=== PATIENT | female | born 1970 | race Caucasian/White ===

== ENCOUNTER 2016-11-26 11:13 | Outpatient (CLI) | payer OTHER | END 2016-11-26 11:14 | disposition home or self-care (01) | DX: G47.30 Sleep apnea, unspecified (principal); G47.8 Other sleep disorders; R06.83 Snoring; R51 Headache; G47.10 Hypersomnia, unspecified ==

== ENCOUNTER 2016-12-11 18:13 | Outpatient (CLI) | payer OTHER | END 2016-12-11 18:14 | disposition critical access hospital (66) | DX: R51 Headache (principal); R11.2 Nausea with vomiting, unspecified; R07.89 Other chest pain | CPT/HCPCS: A0425; A0427 ==

== ENCOUNTER 2016-12-11 18:28 | Emergency (ER) | payer OTHER ==
[2016-12-11] MEDS ORDERED: SODIUM CHLORIDE 0.9% 1,000 ML IV ONE (18:48)
[2016-12-11] MEDS ORDERED: ONDANSETRON 4 MG/2 ML VIAL IVP STA (18:48)
[2016-12-11] MEDS ORDERED: SUMAtriptan 6 MG/0.5 ML VIAL SUBQ STA (18:48)
[2016-12-11] MEDS ORDERED: SUMAtriptan 6 MG/0.5 ML VIAL SUBQ ONE (18:52)
--- NOTE | 2016-12-11 18:52 | ED Physician Documentation ---
PD HPI HEADACHE - Stated complaint Stated Complaint: MIGRAINE - Chief complaint Chief Complaint: Neuro - History obtained from History obtained from: Patient, Family, EMS - History of Present Illness Timing - onset: Other (46-year-old woman with chronic migraines, developed a gradual onset typical headache last night and started vomiting this afternoon. She tried to take Imitrex but was unable to keep it down. After vomiting she does develop some substernal chest pain which she's had before when she vomits.) Review of Systems Ten Systems: 10 systems reviewed and negative Constitutional: denies: Fever, Chills Respiratory: denies: Dyspnea, Cough GI: reports: Nausea, Vomiting. denies: Abdominal Pain, Diarrhea PD PAST MEDICAL HISTORY - Past Medical History Cardiovascular: None Respiratory: Asthma Neuro: Headache/migraine Endocrine/Autoimmune: HyPOthyroidism GI: None - Past Surgical History Past Surgical History: No HEENT: Tonsil/Adenoidectomy - Present Medications Home Medications: Ambulatory Orders Medication Instructions Recorded Confirmed Budesonide/Formoterol Fumarate 1 puffs IH DAILY 11/17/13 12/11/16 [Symbicort 160-4.5 Mcg Inhaler] Ibuprofen [Motrin] 800 mg PO Q8H PRN 11/17/13 12/11/16 Levothyroxine [Synthroid] 125 mcg PO QDAC 11/17/13 12/11/16 Albuterol Sulfate [Ventolin Hfa] 18 gm IH BID 05/23/14 12/11/16 Sumatriptan Succinate [Imitrex] 25 mg PO DAILY PRN #15 tablet 04/12/15 12/11/16 Ferrous Sulfate 324 mg PO DAILY 12/11/16 12/11/16 - Allergies Allergies/Adverse Reactions: Allergies Allergy/AdvReac Type Severity Reaction Status Date / Time acetaminophen [From Vicodin] Allergy Unknown Verified 05/23/14 11:15 hydrocodone bitartrate * Allergy Unknown Verified 05/23/14 11:15 [From Vicodin] hydromorphone HCl * Allergy Unknown Verified 05/23/14 11:15 [From Dilaudid] latex Allergy Rash Verified 11/17/13 16:04 oxycodone HCl * Allergy vomiting Verified 11/17/13 16:04 [From Percocet] promethazine HCl * Allergy vomiting Verified 11/17/13 16:04 [From Phenergan] nalbuphine HCl * AdvReac Severe Anxiety Verified 11/17/13 17:46 [From Nubain] - Social History Does the pt smoke?: No Smoking Status: Never smoker Does the pt drink ETOH?: No Does the pt have substance abuse?: No - Immunizations Immunizations are current?: Yes - POLST Patient has POLST: No PD ED PE NORMAL - Vitals Vital signs reviewed: Yes - General General: Alert and oriented X 3, Other (retching) - HEENT HEENT: PERRL, EOMI - Neck Neck: Supple, no meningeal sign, No bony TTP - Cardiac Cardiac: RRR, No murmur - Respiratory Respiratory: No respiratory distress, Clear bilaterally - Neuro Neuro: Alert and oriented X 3, clinical team lead 2-12 intact, No motor deficit, No sensory deficit, Normal speech - Psych Psych: Normal mood, Normal affect Results - Vitals Vitals: Vital Signs - 24 hr 12/11/16 12/11/16 12/11/16 18:29 19:19 19:25 Temperature 35.9 C L Heart Rate 78 75 82 Respiratory 16 20 Rate Blood Pressure 159/104 H 153/102 H O2 Saturation 96 92 97 Oxygen O2 Source Room air - EKG (time done) 1839 Rate: Rate (enter#) (67) Rhythm: NSR [place]: Normal QRS: Low voltage Ischemia: Normal ST segments Computer interpretation: Agree with computer 1933 Rate: Rate (enter#) (64) Rhythm: NSR [place]: Normal Intervals: Normal [place] QRS: Low voltage Ischemia: Normal ST segments Compare to prior EKG: Unchanged from prior EKG Computer interpretation: Agree with computer PD MEDICAL DECISION MAKING - ED course ED course: The headache is gradual in onset and similar to prior headaches. As such I doubt subarachnoid hemorrhage. There are no infectious symptoms such as fever or stiff neck to make me suspect meningitis. No carbon monoxide exposure. She was having some chest pressure with this, but it seemed related to vomiting. Her EKG was normal. She had more chest pressure the administration of Imitrex which is a known side effect. EKG repeated and still normal and unchanged. She was initially given Imitrex and Zofran for her headache. The nurse told me that the patient had said that Zofran doesn't work for her, but the patient clarified and said it was Phenergan that didn't work for her. She didn't have any improvement with these therapies she was administered Reglan and Benadryl IV. She initially refused the Reglan because of similar he is to Phenergan, but she had good resolution after the Benadryl and requested discharge. Departure - Departure Disposition: 01 Home, Self Care Clinical Impression: Migraine Qualifiers: Migraine type: without aura Status migrainosus presence: with status migrainosus Intractability: intractable Qualified Code(s): G43.011 - Migraine without aura, intractable, with status migrainosus Condition: Good Record reviewed to determine appropriate education?: Yes Instructions: ED Headache Migraine Comments: Call your doctor to arrange a follow up appointment. Make the next available appointment. In the interim return anytime if worse or if new symptoms develop. Your blood pressure was elevated today on check in to the emergency department. This does not mean that you have hypertension, it is a common phenomenon to check into the emergency department and have elevated blood pressure. I recommend that you see your primary care physician within the week to have it rechecked when you're feeling better.
[2016-12-11] MEDS ORDERED: ONDANSETRON 4 MG/2 ML VIAL ONE (18:53)
[2016-12-11] MEDS ORDERED: diphenhydrAMINE INJ 50 MG/ML VIAL IVP STA (19:28)
[2016-12-11] MEDS ORDERED: METOCLOPRAMIDE 10 MG/2 ML VIAL IVP STA (19:28)
[2016-12-11] MEDS ORDERED: diphenhydrAMINE INJ 50 MG/ML VIAL ONE (19:34)
[2016-12-11] MEDS ORDERED: METOCLOPRAMIDE 10 MG/2 ML VIAL IVP ONE (19:35)
[2016-12-11 20:35] VITALS: BP 175/105
== END 2016-12-11 21:00 | disposition home or self-care (01) ==
LOC: EDUNIT# → ED 18:28
DX: G43.011 Migraine without aura, intractable, with status migrainosus (principal); R03.0 Elevated blood-pressure reading, without diagnosis of hypertension; J45.909 Unspecified asthma, uncomplicated; E03.9 Hypothyroidism, unspecified
CPT/HCPCS: 93005; 93010; 96372; 96374; 96375; 99284

== ENCOUNTER 2016-12-20 21:44 | Outpatient (CLI) | payer OTHER | END 2016-12-20 21:45 | disposition home or self-care (01) | LOC: SC 21:44 | PROVIDERS: ATTEND Internal Medicine Pulmonary Disease | DX: G47.33 Obstructive sleep apnea (adult) (pediatric) (principal); Z68.43 Body mass index [BMI] 50.0-59.9, adult | CPT/HCPCS: 95810 ==

== ENCOUNTER 2017-01-14 13:04 | Outpatient (CLI) | payer OTHER | END 2017-01-14 13:05 | disposition home or self-care (01) | LOC: SC 13:04 | PROVIDERS: ATTEND Internal Medicine Pulmonary Disease | DX: G47.33 Obstructive sleep apnea (adult) (pediatric) (principal) | CPT/HCPCS: 99212; 99213 ==

== ENCOUNTER 2017-02-01 23:05 | Outpatient (CLI) | payer OTHER | END 2017-02-01 23:06 | disposition home or self-care (01) | LOC: SC 23:05 | PROVIDERS: ATTEND Internal Medicine Pulmonary Disease | DX: G47.33 Obstructive sleep apnea (adult) (pediatric) (principal); Z68.43 Body mass index [BMI] 50.0-59.9, adult | CPT/HCPCS: 95811 ==

== ENCOUNTER 2017-02-13 08:55 | Outpatient (CLI) | payer OTHER | END 2017-02-13 08:56 | disposition home or self-care (01) | LOC: SC 08:55 | PROVIDERS: ATTEND Nurse Practitioner Family | DX: G47.33 Obstructive sleep apnea (adult) (pediatric) (principal) | CPT/HCPCS: 99212; 99214 ==

== ENCOUNTER 2017-03-25 11:03 | Outpatient (CLI) | payer OTHER | END 2017-03-25 11:04 | disposition home or self-care (01) | LOC: SC 11:03 | PROVIDERS: ATTEND Nurse Practitioner Family | DX: G47.33 Obstructive sleep apnea (adult) (pediatric) (principal) | CPT/HCPCS: 99212; 99214 ==

== ENCOUNTER 2017-04-14 10:36 | Outpatient (CLI) | payer OTHER | END 2017-04-14 10:37 | disposition home or self-care (01) | LOC: DI 10:36 | PROVIDERS: ATTEND Internal Medicine Critical Care Medicine | DX: R06.02 Shortness of breath (principal); I51.7 Cardiomegaly | CPT/HCPCS: 93306 ==

== ENCOUNTER 2017-05-06 06:50 | Day surgery (SDC) | payer OTHER ==
[2017-05-06] MEDS ORDERED: LACTATED RINGERS 1,000 ML IV ONE (07:09)
[2017-05-06 07:24] LABS: HCG UR QUAL NEGATIVE
[2017-05-06] MEDS ORDERED: fentaNYL 100 MCG/2 ML VIAL IVP ONE (08:46)
[2017-05-06] MEDS ORDERED: MIDAZOLAM 2 MG/2 ML VIAL IVP ONE (08:46)
[2017-05-06] MEDS ORDERED: BENZOCAINE/TETRACAINE/BUTAMBEN SPRAY 56 GM TOP ONE (08:55)
[2017-05-06] MEDS ORDERED: LIDO GARGLE 30 ML BOTTLE TOP ONE (08:56)
[2017-05-06 11:19] VITALS: BP 142/77
== END 2017-05-06 06:51 | disposition home or self-care (01) ==
LOC: SDS 06:50
PROVIDERS: ATTEND Surgery
PROC: 0DB68ZX Excision of Stomach, Via Natural or Artificial Opening Endoscopic, Diagnostic (ICD-10-PCS; principal; 2017-05-06 08:00)
DX: K31.7 Polyp of stomach and duodenum (principal); K44.9 Diaphragmatic hernia without obstruction or gangrene; K57.90 Diverticulosis of intestine, part unspecified, without perforation or abscess without bleeding; D12.2 Benign neoplasm of ascending colon; K64.8 Other hemorrhoids
CPT/HCPCS: 43251; 81025; A9270; J7120

== ENCOUNTER 2017-05-06 20:05 | Emergency (ER) | payer OTHER ==
--- NOTE | 2017-05-06 20:41 | ED Physician Documentation ---
PD HPI NVD - Stated complaint Stated Complaint: VOMITING/POST SURG - Chief complaint Chief Complaint: Neuro - History obtained from History obtained from: Patient - History of Present Illness Timing - onset: Today Timing - duration: Hours (8-9) Timing - details: Abrupt onset, Still present (she was seen for some stomach pains and blood in stool with workup leading to scoping this morning. Had EGD and colonoscopy by Dr. Burks. Onset of nausea and vomiting of some blood shortly after arrival home after noon. Continued with nausea and repetitive vomiting, though the blood lessened and then just bilious emesis. Having some right chest pain after vomiting. talked with surgeon and was referred to ED for fluids/meds/evaluation.) Associated symptoms: Abdominal pain (mild with vomiting, not continual), Chest pain (right sided after vomiting.), Hematemesis, Loss of appetite. No: Fever, Near syncope / syncope Contributing factors: No: Sick contact, Bad food, Recent antibiotics, Alcohol use, Anticoagulated Improved by: No: Vomiting, Position Worsened by: Eating, Palpation. No: Breathing Similar symptoms before: Has not had sx before Recently seen: Surgery (this morning about 9 am, with EGD/colonoscopy.) Review of Systems Constitutional: denies: Fever, Chills, Myalgias Nose: denies: Rhinorrhea / runny nose, Congestion Throat: denies: Sore throat Respiratory: denies: Cough GI: reports: Abdominal Pain, Nausea, Vomiting. denies: Abdominal Swelling, Diarrhea : denies: Dysuria, Frequency Skin: denies: Rash, Lesions Neurologic: reports: Generalized weakness, Near syncope, Headache. denies: Focal weakness, Numbness, Syncope, Altered mental status, Head injury Endocrine: denies: Weight loss, Easy bruising / bleeding PD PAST MEDICAL HISTORY - Past Medical History Cardiovascular: Pulmonary embolism Respiratory: Asthma, Pneumonia, Sleep apnea, CPAP use Neuro: Headache/migraine Endocrine/Autoimmune: HyPOthyroidism GI: GERD, Hemorrhoids : None HEENT: Chronic sinusitis Psych: Anxiety, Panic attacks Musculoskeletal: None Derm: None - Past Surgical History Past Surgical History: No General: Colonoscopy HEENT: Tonsil/Adenoidectomy - Present Medications Home Medications: Ambulatory Orders Medication Instructions Recorded Confirmed Budesonide/Formoterol Fumarate 1 puffs IH DAILY 04/22/14 05/16/17 [Symbicort 160-4.5 Mcg Inhaler] Ibuprofen [Motrin] 800 mg PO Q8H PRN 11/17/13 12/11/16 Levothyroxine [Synthroid] 150 mcg PO QDAC 11/17/13 05/06/17 Albuterol Sulfate [Ventolin Hfa] 18 gm IH BID 05/23/14 05/06/17 Sumatriptan Succinate [Imitrex] 25 mg PO DAILY PRN #15 tablet 04/12/15 05/06/17 Ferrous Sulfate 324 mg PO DAILY 12/11/16 05/06/17 Montelukast Sodium [Singulair] 4 mg PO DAILY 05/06/17 05/06/17 Pantoprazole [Protonix] 40 mg PO DAILY 05/06/17 05/06/17 raNITIdine [Zantac] 150 mg PO DAILY 05/06/17 05/06/17 - Allergies Allergies/Adverse Reactions: Allergies Allergy/AdvReac Type Severity Reaction Status Date / Time acetaminophen [From Vicodin] Allergy Unknown Verified 05/06/17 20:26 hydrocodone bitartrate * Allergy Unknown Verified 05/06/17 20:26 [From Vicodin] hydromorphone HCl * Allergy Unknown Verified 05/06/17 20:26 [From Dilaudid] latex Allergy Rash Verified 05/06/17 20:26 oxycodone HCl * Allergy vomiting Verified 05/06/17 20:26 [From Percocet] promethazine HCl * Allergy vomiting Verified 05/06/17 20:26 [From Phenergan] nalbuphine HCl * AdvReac Severe Anxiety Verified 05/06/17 20:26 [From Nubain] - Social History Does the pt smoke?: No Smoking Status: Never smoker Does the pt drink ETOH?: No Does the pt have substance abuse?: No - Immunizations Immunizations are current?: Yes - POLST Patient has POLST: No PD ED PE NORMAL - Vitals Vital signs reviewed: Yes - General General: Alert and oriented X 3, No acute distress, Well developed/nourished, Other (pallor and appears generally weak.) - HEENT HEENT: Pharynx benign. No: Moist mucous membranes - Neck Neck: Supple, no meningeal sign - Cardiac Cardiac: RRR, No murmur - Respiratory Respiratory: Clear bilaterally - Abdomen Abdomen: Normal bowel sounds, Soft, Non distended, No organomegaly, Other (some tender epigastric without guarding nor percussion tender. No diffuse tenderness. ) - Female Female : Deferred - Rectal Rectal: Deferred - Back Back: No CVA TTP - Derm Derm: Normal color - Extremities Extremities: Normal ROM s pain, No edema, No calf tenderness / cord - Neuro Neuro: Alert and oriented X 3, No motor deficit, Normal speech Results - Vitals Vitals: Vital Signs - 24 hr 05/06/17 05/06/17 05/06/17 20:22 20:47 22:09 Temperature 36.0 C L 36.5 C Heart Rate 95 79 77 Respiratory 20 14 14 Rate Blood Pressure 164/108 H 174/95 H 158/95 H O2 Saturation 90 L 100 97 Oxygen O2 Source Room air - Labs Labs: Laboratory Tests 05/06/17 05/06/17 05/06/17 20:21 21:26 21:26 WBC 13.1 H RBC 5.67 H Hgb 12.8 Hct 40.7 MCV 71.7 L MCH 22.6 L MCHC 31.5 L RDW 18.4 H Plt Count 355 MPV 6.9 L Neut # 11.7 H Lymph # 1.1 L [place] # 0.3 Eos # 0.0 Baso # 0.1 Absolute Nucleated RBC 0.01 Nucleated RBC % 0.1 Sodium 130 L Potassium 4.1 Chloride 94 L Carbon Dioxide 26 Anion Gap 10.0 BUN 6 Creatinine 0.7 Estimated GFR (MDRD) 89 Glucose 120 H POC Whole Bld Glucose 122 H Calcium 9.0 Magnesium 1.7 Total Bilirubin 0.6 AST 34 ALT 30 Alkaline Phosphatase 88 Total Protein 8.0 Albumin 4.2 Globulin 3.8 Albumin/Globulin Ratio 1.1 Lipase 32 PD MEDICAL DECISION MAKING - ED course Complexity details: reviewed results, re-evaluated patient (still nauseated after couple doses of antiemetics. ), considered differential (Does not have acute abd peritoneal findings. However had EGD with polyp removal and is nauseated, still so after IV fluids and meds. I think she will need overnight for ongoing hydration, antiemetics and time for stomach rest for gastritis. ), d /w patient, d/w wig sales consultant (Dr. Burks) Departure - Departure Disposition: ED Place in Observation Clinical Impression: Status post endoscopy Gastritis Qualifiers: Gastritis type: other gastritis Chronicity: acute Gastritis bleeding: with bleeding Qualified Code(s): K29.01 - Acute gastritis with bleeding Nausea and vomiting Qualifiers: Vomiting type: unspecified Vomiting Intractability: non-intractable Qualified Code(s): R11.2 - Nausea with vomiting, unspecified Condition: Stable Record reviewed to determine appropriate education?: Yes
[2017-05-06] MEDS ORDERED: ONDANSETRON 4 MG/2 ML VIAL ONE (21:26)
[2017-05-06] MEDS ORDERED: FAMOTIDINE 20 MG/50 ML 50 ML IV ONE (21:26)
[2017-05-06] MEDS ORDERED: SODIUM CHLORIDE FLUSH 0.9% 10 ML SYRINGE IVP ONE (21:26)
[2017-05-06] MEDS: SODIUM CHLORIDE 0.9% 1,000 ML IV ONE (21:32)
[2017-05-06] MEDS: ONDANSETRON 4 MG/2 ML VIAL IVP STA (21:33)
[2017-05-06 21:34] LABS: BASOPHILS # (AUTO) 0.1 10^3/uL (0.0-0.1); BASOPHILS % (AUTO) 0.6 %; HCT - HEMATOCRIT 40.7 % (37.0-47.0); HGB - HEMOGLOBIN 12.8 g/dL (12.0-16.0); LYMPHOCYTES # (AUTO) 1.1 10^3/uL (1.5-3.5); LYMPHOCYTES % (AUTO) 8.3 %; MEAN CORPUSCULAR HEMOGLOBIN 22.6 pg (27.0-31.0); MEAN CORPUSCULAR HGB CONC 31.5 g/dL (32.0-36.0); MEAN CORPUSCULAR VOLUME 71.7 fL (81.0-99.0); MEAN PLATELET VOLUME 6.9 fL (7.9-10.8); MONOCYTES # (AUTO) 0.3 10^3/uL (0.0-1.0); MONOCYTES % (AUTO) 2.2 %; NEUTROPHILS # (AUTO) 11.7 10^3/uL (1.5-6.6); NEUTROPHILS % (AUTO) 88.9 %; NUCLEATED RED BLOOD CELLS AUTO 0.1 /100WBC; RED BLOOD COUNT 5.67 10^6/uL (4.20-5.40); RED CELL DISTRIBUTION WIDTH 18.4 % (12.0-15.0); UNCORRECTED WHITE BLOOD COUNT 13.1 x10^3/uL; WHITE BLOOD COUNT 13.1 x10^3/uL (4.8-10.8)
[2017-05-06] MEDS: FAMOTIDINE 20 MG/50 ML 50 ML IV ONE (21:42)
[2017-05-06 21:48] LABS: ALBUMIN/GLOBULIN RATIO 1.1 (1.0-2.2); BILIRUBIN,TOTAL 0.6 mg/dL (0.2-1.0); CREATININE 0.7 mg/dL (0.4-1.0); MAGNESIUM 1.7 mg/dL (1.7-2.8); POTASSIUM 4.1 mmol/L (3.5-5.0)
[2017-05-06] MEDS ORDERED: ACETAMINOPHEN 1,000 MG/100 ML 100 ML IV ONE (21:51)
[2017-05-06] MEDS: ACETAMINOPHEN 1,000 MG/100 ML 100 ML IV STA (21:59)
[2017-05-06] MEDS ORDERED: KETOROLAC 60 MG/2 ML VIAL IVP STA (22:07)
[2017-05-06] MEDS ORDERED: DEXAMETHASONE 10 MG/ML VIAL IVP STA (22:07)
[2017-05-06] MEDS ORDERED: NS W/20 MEQ KCL 1,000 ML IV SCH (23:00)
[2017-05-06] MEDS ORDERED: PANTOPRAZOLE 40 MG VIAL IVP SCH (23:00)
[2017-05-06] MEDS ORDERED: ONDANSETRON 4 MG/2 ML VIAL IVP PRN (23:00)
[2017-05-06] MEDS ORDERED: SODIUM CHLORIDE FLUSH 0.9% 10 ML SYRINGE IVP PRN (23:00)
--- NOTE | 2017-05-06 23:05 | XRAY Preliminary Report ---
Exam: XR Chest 1 View IMPRESSION: Negative single view chest. [facility] SITE ID: [id number]
--- NOTE | 2017-05-06 23:11 | XRAY Report ---
EXAM: CHEST RADIOGRAPHY EXAM DATE: 05/06/2017 10:49 PM. CLINICAL HISTORY: Chest pain post-esophagogastroduodenoscopy. COMPARISON: 04/12/2015. TECHNIQUE: 1 view. FINDINGS: Lungs/Pleura: No focal opacities evident. No pleural effusion. No pneumothorax. Mediastinum: Within exam limitations, the cardiomediastinal contour is normal. Other: None. IMPRESSION: Negative single view chest. [facility] Referring Provider Line: [phone] SITE ID: [id number]
[2017-05-06] MEDS ORDERED: METOCLOPRAMIDE 10 MG/2 ML VIAL ONE (23:16)
[2017-05-06] MEDS: METOCLOPRAMIDE 10 MG/2 ML VIAL IVP STA (23:16)
[2017-05-06] MEDS ORDERED: SODIUM CHLORIDE 0.9% 500 ML IV SCH (23:27)
[2017-05-06] MEDS ORDERED: POTASSIUM CHLOR IV ONE (23:27)
--- NOTE | 2017-05-06 23:35 | PROVIDER PROGRESS NOTE ---
Subjective - General Procedure Date: 05/06/17 Post Op Days: 0 Procedure Performed: EGD with polypectomy and colonoscopy with polypectomy - Review of Systems Gastrointestinal: positive: Nausea, Vomiting Objective - Patient Data Reviewed Vital Signs: Yes Vital Signs: Vital Signs x48h Temp Pulse Resp BP Pulse Ox 05/06/17 22:09 36.5 C 77 14 158/95 H 97 05/06/17 20:47 79 14 174/95 H 100 05/06/17 20:22 36.0 C L 95 20 164/108 H 90 L Weight: Weight 05/04/17 05/05/17 05/06/17 23:59 23:59 23:59 Weight (kg) 113.398 kg Intake & Output: Intake and Output Totals x24h 05/04/17 05/05/17 05/06/17 23:59 23:59 23:59 Intake Total 150 Balance 150 - Lab Results Lab Results: 05/06/17 21:26 05/06/17 21:26 Other Lab Results: Lab Results x24hrs 05/06/17 05/06/17 05/06/17 Range/Units 21:26 21:26 20:21 WBC 13.1 H (4.8-10.8) x10^3/uL RBC 5.67 H (4.20-5.40) 10^6/uL Hgb 12.8 (12.0-16.0) g/dL Hct 40.7 (37.0-47.0) % MCV 71.7 L (81.0-99.0) fL MCH 22.6 L (27.0-31.0) pg MCHC 31.5 L (32.0-36.0) g/dL RDW 18.4 H (12.0-15.0) % Plt Count 355 (130-450) 10^3/uL MPV 6.9 L (7.9-10.8) fL Neut # 11.7 H (1.5-6.6) 10^3/uL Lymph # 1.1 L (1.5-3.5) 10^3/uL [place] # 0.3 (0.0-1.0) 10^3/uL Eos # 0.0 (0.0-0.7) 10^3/uL Baso # 0.1 (0.0-0.1) 10^3/uL Absolute Nucleated RBC 0.01 x10^3/uL Nucleated RBC % 0.1 /100WBC Sodium 130 L (135-145) mmol/L Potassium 4.1 (3.5-5.0) mmol/L Chloride 94 L (101-111) mmol/L Carbon Dioxide 26 (21-32) mmol/L Anion Gap 10.0 (6-13) BUN 6 (6-20) mg/dL Creatinine 0.7 (0.4-1.0) mg/dL Estimated GFR (MDRD) 89 (>89) Glucose 120 H (70-100) mg/dL POC Whole Bld Glucose 122 H (70 - 100) mg/dL Calcium 9.0 (8.5-10.3) mg/dL Magnesium 1.7 (1.7-2.8) mg/dL Total Bilirubin 0.6 (0.2-1.0) mg/dL AST 34 (10-42) IU/L ALT 30 (10-60) IU/L Alkaline Phosphatase 88 (42-121) IU/L Total Protein 8.0 (6.7-8.2) g/dL Albumin 4.2 (3.2-5.5) g/dL Globulin 3.8 (2.1-4.2) g/dL Albumin/Globulin Ratio 1.1 (1.0-2.2) Lipase 32 (22-51) U/L Impression/Plan - Problem List Problem List: Spoke with Dr. Issa Vick and patient will be placed under observation in order to hydrate and get control of her nausea and vomiting. Can see H&P down for procedure and updated today for details.
[2017-05-06] MEDS ORDERED: SODIUM CHLORIDE 0.9% 1,000 ML IV ONE (23:37)
[2017-05-07] MEDS ORDERED: ONDANSETRON ODT 4 MG Prepack 2 TL ONE (00:52)
[2017-05-07 01:04] VITALS: BP 159/100
[2017-05-07] MEDS: ONDANSETRON ODT 4 MG Prepack 2 TL PRN (01:04)
[2017-05-07] MEDS ORDERED: SODIUM CHLORIDE FLUSH 0.9% 10 ML SYRINGE IVP SCH (06:00)
== END 2017-05-07 01:04 | disposition home or self-care (01) ==
LOC: ED 20:05 → UNDOADMOB 23:00 → OBS 23:00 → ED 05-07 01:04
PROC: 0DB68ZX Excision of Stomach, Via Natural or Artificial Opening Endoscopic, Diagnostic (ICD-10-PCS; principal; 2017-05-06)
DX: K29.01 Acute gastritis with bleeding (principal); R11.2 Nausea with vomiting, unspecified; E03.9 Hypothyroidism, unspecified; Z86.711 Personal history of pulmonary embolism; Z98.890 Other specified postprocedural states; D50.9 Iron deficiency anemia, unspecified; K31.7 Polyp of stomach and duodenum; K44.9 Diaphragmatic hernia without obstruction or gangrene; K57.90 Diverticulosis of intestine, part unspecified, without perforation or abscess without bleeding; D12.2 Benign neoplasm of ascending colon; K64.8 Other hemorrhoids
CPT/HCPCS: 36415; 43251; 71010; 80053; 81025; 83690; 83735; 85025; 93005; 96365; 96368; 96375; 99284; A9270; J0131; J7120; 88305

== ENCOUNTER 2017-08-20 11:20 | Outpatient (CLI) | payer OTHER | END 2017-08-20 11:21 | disposition home or self-care (01) | LOC: SC 11:20 | PROVIDERS: ATTEND Nurse Practitioner Family | DX: G47.33 Obstructive sleep apnea (adult) (pediatric) (principal) | CPT/HCPCS: 99212; 99214 ==

== ENCOUNTER 2017-09-19 10:08 | Outpatient (CLI) | payer OTHER | END 2017-09-19 10:09 | disposition home or self-care (01) | LOC: SC 10:08 | PROVIDERS: ATTEND Nurse Practitioner Family | DX: G47.33 Obstructive sleep apnea (adult) (pediatric) (principal); R03.0 Elevated blood-pressure reading, without diagnosis of hypertension | CPT/HCPCS: 99212; 99214 ==

== ENCOUNTER 2017-09-23 19:10 | Emergency (ER) | payer OTHER ==
[2017-09-23 19:56] VITALS: BP 175/100
== END 2017-09-23 20:42 | disposition left against medical advice (07) ==
LOC: ED 19:10
DX: Z53.9 Procedure and treatment not carried out, unspecified reason (principal)
CPT/HCPCS: 99282

== ENCOUNTER 2019-02-09 08:42 | Outpatient (CLI) | payer OTHER | END 2019-02-09 08:43 | disposition home or self-care (01) | LOC: SC 08:42 | PROVIDERS: ATTEND Nurse Practitioner Family | DX: G47.33 Obstructive sleep apnea (adult) (pediatric) (principal) | CPT/HCPCS: 99212; 99214 ==

== ENCOUNTER 2020-12-13 10:08 | Outpatient (CLI) | payer OTHER ==
--- NOTE | 2020-12-13 10:35 | SLEEP CARE CONSULTATION ---
Information from patient questionnaire entered by Mckayla Hall. I have reviewed and concur with the information entered by Mckayla Hall. This document represents the service I personally performed and the decisions made by , Liza Steinberg ARNP. History of Present Illness Service Date and Time: 12/13/2020 1008 Previous diagnosis: Severe, Obstructive Sleep Apnea-Hypopnea Syndrome AHI: 50.5 (in 2017) Reason for follow up: annual (last seen 01/2017) Equipment type: CPAP Equipment obtained from: [employer] (getting supplies as needed) Mask style: Nasal Mask brand: Respironics Backup mask available: Yes (old mask) Last cushion change: 2 weeks ago Prior sleep studies: Yes Year and Where: 2017 - [facility] Type of Sleep Study: Polysomnography HPI additional information: ALEXANDRE BOWERS was diagnosed to have severe, AHI 50.5, obstructive sleep apnea- hypopnea syndrome and returned today for CPAP therapy annual follow-up. CPAP Compliance Data - Data Reviewed with Patient Average duration of nightly device use: 8 hr 16 min Compliance rate %: 98.9 (180 days) Current pressure setting (cmH2O): 7 Humidity settin Heated hose settin Average residual AHI: 1.3 Average large leak: 11 min 41 sec Subjective Patient concerns: reports: air blowing in eyes, mask leak noise, dry mouth, nose, throat (dry mouth), other (headache; snore while using device). denies: aerophagia, mask discomfort, condensation in mask/hose, nasal congestion, epistaxis Observed to snore while using device: Yes (once in a while when mouth open) Current pressure setting perceived as: comfortable On therapy, patient: reports: sleeping better, awakening more refreshed, being more awake and alert during the day, more rested overall. denies: drowsiness while driving Initial [place] Sleepiness Scale score: 14 (in 2017) Current [place] Sleepiness Scale score: 4 Allergies and Home Medications Home medication list reviewed: Yes (Zoloft; propanolol for HTN) Review of Systems Review of systems same as previous: No (cortisone shot in right knee) Physical Exam Heart Rate: 82 O2 Saturation: 97 Height: 5 ft 1 in Weight: 266 lb Body Mass Index: 50.2 BMI Classification: Morbidly Obese Impression and Plan 1. Obstructive Sleep Apnea-Hypopnea Syndrome, severe, with good treatment compliance and good apnea control. On CPAP therapy, the patient has better sleep quality and is more rested overall. Her has noticed snoring occasionally and she feels the pressure could be a little low. To resolve snore, the CPAP pressure will be changed to 8 cmH20. Patient advised to contact this office if pressure change uncomfortable or if pressure change does not resolve snore. She also has been having some mouth dryness. I advised her to try to turn on her humidifier and try with lowest setting to reduce oral dryness. If it becomes too warm she could try bypass humidity by filling the water chamber. She voiced understanding. She has some mask leak noises and air leaking in her eyes, especially when laying on her side. Mask leaks can be reduced by washing mask daily and changing mask cushions more frequently to improve mask seal and comfort. Additionally, mask leaks predominately from when patient sleeps on their side can be reduced by using a CPAP pillow. A CPAP pillow sample was shown. This and other styes can be purchased online. Patient's apnea severity and rationale for treatment to reduce apnea, improve sleep quality and reduce cardiovascular and cerebrovascular events was reviewed. I also reviewed the benefit of consistent device use of CPAP for gastric reflux, anxiety, and insulin resistance. * Try the CPAP pillow * Change auto CPAP pressure to 8 cmH2O * Notify me if snoring with mask or feeling that the pressure is too much or too little * Attempt to lose weight * Call this office if any problems using CPAP * Return for follow up in 1 year, or sooner if concerns arise Counseling Topics: Spare mask, Weight loss health impact Visit Type: In Office Time Spent with Patient (minutes): 21 Provider Statement: I spent 100% of the Face to Face Visit with the patient with greater than 50% spent counseling the patient and coordination of care.
== END 2020-12-13 10:09 | disposition home or self-care (01) ==
LOC: SC 10:08
PROVIDERS: ATTEND Nurse Practitioner Family
DX: G47.33 Obstructive sleep apnea (adult) (pediatric) (principal); E66.01 Morbid (severe) obesity due to excess calories; Z68.43 Body mass index [BMI] 50.0-59.9, adult
CPT/HCPCS: 99212; 99213

== ENCOUNTER 2021-02-20 14:44 | Outpatient (CLI) | payer OTHER ==
--- NOTE | 2021-02-28 05:25 | Mammography Report ---
BILATERAL DIGITAL SCREENING MAMMOGRAM 3D/2D: 02/20/2021 CLINICAL: Routine screening. Comparison is made to exams dated: 03/17/2015 mammogram and 08/10/2013 mammogram - [facility]. There are scattered fibroglandular elements in both breasts. No significant masses, calcifications, or other findings are seen in either breast. There has been no significant interval change. IMPRESSION: NEGATIVE There is no mammographic evidence of malignancy. A 1 year screening mammogram is recommended. This exam was interpreted at Station ID: [id number]. NOTE: For mammograms, a report in lay terms will be sent to the patient. Approximately 15% of breast malignancies will not be visualized mammographically. In the management of a palpable breast mass, a negative mammogram must not discourage biopsy of a clinically suspicious lesion. Electronically Signed By: Hermilo Rubio M.D. aty/penrad:02/27/2021 12:41:55 ACR BI-RADS Category 1: Negative [id number] PARENCHYMAL PATTERN: (A) - The breast(s) demonstrate(s) scattered fibroglandular densities. BI-RADS CATEGORY: (1) - 1 RECOMMENDATION: (ANNUAL) - Recommend routine annual screening mammography. [id number] 1 year screening LATERALITY: (B)
== END 2021-02-20 14:45 | disposition home or self-care (01) ==
LOC: DI.N 14:44
DX: Z12.31 Encounter for screening mammogram for malignant neoplasm of breast (principal)

== ENCOUNTER 2022-12-18 20:27 | Outpatient (CLI) | payer OTHER | END 2022-12-18 20:28 | disposition critical access hospital (66) | LOC: EMS 20:27 | DX: M25.471 Effusion, right ankle (principal); X50.1XXA Overexertion from prolonged static or awkward postures, initial encounter; Y93.01 Activity, walking, marching and hiking; Y92.480 Sidewalk as the place of occurrence of the external cause | CPT/HCPCS: A0425; A0429 ==

== ENCOUNTER 2022-12-18 20:50 | Emergency (ER) | payer OTHER ==
--- NOTE | 2022-12-18 20:58 | ED Physician Documentation ---
PD HPI LOWER EXT INJURY - Stated complaint Stated Complaint: R ANKLE PX - History obtained from History obtained from: Patient - History of Present Illness PD HPI LOW EXT INJURY LOCATION: Right, Ankle Type of injury: Fall Where injury occurred: Street Improved by: Rest, Ice Worsened by: Moving, Palpating Associated symptoms: Weakness, Swelling. No: Numbness, Tingling, Discolored Contributing factors: No: Anticoagulated, Prior ortho surgery, Prosthetic joint, Work related - Additional information Additional information: 52-year-old female presents via EMS for right ankle injury. The patient had been at the gym and sauna and was leaving, and stepped off the curb and stumbled and twisted her right ankle. She landed onto both knees and sat down. She did not hit her head or neck and denies any other injuries besides right ankle pain. She did note that she was a little woozy after the event but states that she had not eaten much today and had just been at the gym and done a sauna session and thinks that this caused her to feel woozy. She was picked up by EMS as she was unable to ambulate and was brought here. She declined any medication by EMS and was given ice pack. PD PAST MEDICAL HISTORY - Past Medical History Past Medical History: Yes Cardiovascular: Pulmonary embolism Respiratory: Asthma, Pneumonia, Sleep apnea, CPAP use Endocrine/Autoimmune: HyPOthyroidism GI: GERD, Hemorrhoids : None HEENT: Chronic sinusitis Psych: Anxiety, Panic attacks Musculoskeletal: None Derm: None - Past Surgical History Past Surgical History: No General: Colonoscopy HEENT: Tonsil/Adenoidectomy - Present Medications Home Medications: Ambulatory Orders Medication Instructions Recorded Confirmed Budesonide/Formoterol Fumarate 1 puffs IH DAILY 11/17/13 12/11/16 [Symbicort 160-4.5 Mcg Inhaler] Ibuprofen [Motrin] 800 mg PO Q8H PRN 11/17/13 12/11/16 Levothyroxine [Synthroid] 150 mcg PO QDAC 11/17/13 05/06/17 Albuterol Sulfate [Ventolin Hfa] 18 gm IH BID 05/23/14 05/06/17 Sumatriptan Succinate [Imitrex] 25 mg PO DAILY PRN #15 tablet 04/12/15 05/06/17 Ferrous Sulfate 324 mg PO DAILY 12/11/16 05/06/17 Montelukast Sodium [Singulair] 4 mg PO DAILY 05/06/17 05/06/17 Ondansetron Odt [Zofran] 4 mg TL Q6H PRN #15 tablet 05/07/17 New Med 09/23/17 - Allergies Allergies/Adverse Reactions: Allergies Allergy/AdvReac Type Severity Reaction Status Date / Time hydrocodone bitartrate * Allergy Unknown Verified 12/18/22 20:58 [From Vicodin] hydromorphone HCl * Allergy Unknown Verified 12/18/22 20:58 [From Dilaudid] latex Allergy Rash Verified 12/18/22 20:58 oxycodone HCl * Allergy vomiting Verified 12/18/22 20:58 [From Percocet] promethazine HCl * Allergy vomiting Verified 12/18/22 20:58 [From Phenergan] nalbuphine HCl * AdvReac Severe Anxiety Verified 12/18/22 20:58 [From Nubain] - Social History Does the pt smoke?: No Smoking Status: Never smoker Does the pt drink ETOH?: No Does the pt have substance abuse?: No - Immunizations Immunizations are current?: Yes - POLST Patient has POLST: No PD ED PE NORMAL - Vitals Vital signs reviewed: Yes - General General: Alert and oriented X 3, No acute distress, Well developed/nourished - HEENT HEENT: Atraumatic, Moist mucous membranes - Cardiac Cardiac: RRR, No murmur - Respiratory Respiratory: No respiratory distress, Clear bilaterally - Abdomen Abdomen: Normal bowel sounds, Soft - Derm Derm: Normal color, Warm and dry, No rash - Extremities Extremities: Other (Right lateral malleoli are swelling and tenderness, no other ankle or foot swelling or tenderness. 2+ pedal pulses with brisk cap refill. Normal sensation in both feet, flexes and extends ankle without substantial pain.) - Neuro Neuro: Alert and oriented X 3 Eye Opening: Spontaneous Motor: Obeys Commands Verbal: Oriented GCS Score: 15 - Psych Psych: Normal mood, Normal affect Results - Vitals Vitals: Vital Signs - 24 hr 12/18/22 12/18/22 12/18/22 20:55 21:11 22:18 Temperature 36.6 C 36.4 C L Heart Rate 72 73 76 Respiratory 18 18 17 Rate Blood Pressure 115/72 128/85 H O2 Saturation 96 97 95 12/18/22 22:19 Temperature Heart Rate Respiratory 17 Rate Blood Pressure O2 Saturation Oxygen O2 Source Room air - Rads (name of study) No standard instances Relevant Findings:: EMP independent interpretation of test PD Medical Decision Making - ED course Complexity details: reviewed results, re-evaluated patient, considered differential, d/w patient ED course: 52-year-old female presented after tripping off a curb and inverting her right ankle. She presented with right ankle pain and swelling but no other acute injuries. We obtain x-rays of these areas which were read by me and are negative. At a recommended supportive measures for likely ankle sprain with ibuprofen, Tylenol, elevation, cool compress and Duglas wrap. Patient was given Duglas wrap and crutches to use as needed though advised she can weight-bear as tolerated. Recommended follow-up with PCP if no improvement in next 2 weeks or so and consider physical therapy or additional imaging at that time if indicated. Departure - Departure Disposition: 01 Home, Self Care Clinical Impression: Ankle sprain Qualifiers: Encounter type: initial encounter Involved ligament of ankle: unspecified ligament Laterality: right Qualified Code(s): S93.401A - Sprain of unspecified ligament of right ankle, initial encounter Condition: Good Instructions: ED Sprain Ankle W X Ray Comments: There are no signs of fracture or dislocation on your x-ray. This is likely an ankle sprain. Please utilize a cool compress, elevate the leg and try light compression with Duglas wrap to help with the pain and swelling. You can take ibuprofen and Tylenol as well. If no improvement in the next 1 to 2 weeks, follow-up with your primary doctor for repeat imaging. Discharge Date/Time: 12/18/22 22:25
[2022-12-18 22:20] VITALS: BP 128/85
--- NOTE | 2022-12-18 22:55 | XRAY Report ---
PROCEDURE: Ankle 3 View RT INDICATIONS: fall, right ankle swelling TECHNIQUE: 3 views of the ankle were acquired. COMPARISON: None. FINDINGS: Bones: No fractures or dislocations. Ankle mortise is normally aligned. No suspicious bony lesions . Soft tissues: No tibiotalar joint effusion. There is periarticular soft tissue swelling laterally. Achilles tendon appears normal. IMPRESSION: 1. No acute bony abnormality. Reviewed by: Jay Tapia MD on 12/18/2022 10:53 PM PDT Approved by: Jay Tapia MD on 12/18/2022 10:53 PM PDT Station ID: [id number]
== END 2022-12-18 22:25 | disposition home or self-care (01) ==
LOC: EDUNIT# → ED 20:50
DX: S93.401A Sprain of unspecified ligament of right ankle, initial encounter (principal); W01.0XXA Fall on same level from slipping, tripping and stumbling without subsequent striking against object, initial encounter; Y93.89 Activity, other specified; Y92.39 Other specified sports and athletic area as the place of occurrence of the external cause
CPT/HCPCS: 99283